=== PATIENT | male | born 1955 | race Caucasian/White ===

== ENCOUNTER 2025-02-22 09:03 | Day surgery (SDC) | payer MEDICARE, OTHER ==
[~2025-02-22 09:03] MED LIST: Midazolam 1 MG/ML 2 ML SDV ONE; Propofol 200 MG/20 ML SDV ONE; fentaNYL 100 MCG/2 ML SDV ONE
[2025-02-22] MEDS: Lactated Ringers 1,000 ML IV SCH (09:34)
[2025-02-22] MEDS ORDERED: Propofol 200 MG/20 ML SDV ONE (11:04)
[2025-02-22] MEDS: Lidocaine 1% with EPINEPHrine 1:100,000 50 ML MDV ONE (13:50)
== END 2025-02-22 12:40 | disposition home or self-care (01) ==
LOC: JP.SDS 09:03
PROVIDERS: ATTEND Surgery
DX: C44.612 Basal cell carcinoma of skin of right upper limb, including shoulder (principal); Z79.82 Long term (current) use of aspirin; Z79.899 Other long term (current) drug therapy
CPT/HCPCS: 00300; 14021; J0690; J2250; J2704; J3010; J7120; 88305; J0665